=== PATIENT | male | born 1990 | race Caucasian/White ===

== ENCOUNTER 2017-04-13 03:08 | Emergency (ER) | payer SELFPAY ==
[~2017-04-13] VITALS: Ht 190.5 cm; Wt 92.5 kg
--- NOTE | 2017-04-13 03:15 | NUR ---
PLACED IN ROOM 4B FOR ER EVAL
--- NOTE | 2017-04-13 03:16 | NUR ---
ER MD AT BEDSIDE TALKING WITH PT
--- NOTE | 2017-04-13 03:18 | NUR ---
TO X-RAY FOR FILMS
--- NOTE | 2017-04-13 03:40 | NUR ---
BACK FROM X-RAY
--- NOTE | 2017-04-13 04:00 | NUR ---
PT STATES FEELING A LITTLE BETTER AFTER MEDS 12/05
--- NOTE | 2017-04-13 04:11 | NUR ---
PT D/C HOME BY UBER WITH RX AND ACI GIVEN.PT VERBALIZED UNDERSTANDING
== END 2017-04-13 04:11 | disposition home or self-care (01) ==
LOC: ER 03:12
DX: S29.012A Strain of muscle and tendon of back wall of thorax, initial encounter (principal); S20.219A Contusion of unspecified front wall of thorax, initial encounter; V49.9XXA Car occupant (driver) (passenger) injured in unspecified traffic accident, initial encounter; Y93.89 Activity, other specified; Y92.413 State road as the place of occurrence of the external cause; Y99.9 Unspecified external cause status
CPT/HCPCS: 71010; 72072; 72100; 99284; A4663